=== PATIENT | male | born 1960 | race Caucasian/White ===

== ENCOUNTER 2019-11-27 12:07 | Emergency (ER) | payer OTHER ==
[~2019-11-27] VITALS: Ht 175.3 cm; Wt 77.1 kg
[2019-11-28] MEDS ORDERED: APETIGEN-PLUS1 EACH PO (03:38)
== END 2019-11-28 03:50 | disposition home or self-care (01) ==
LOC: ER 12:07
DX: R10.84 Generalized abdominal pain (principal); E86.0 Dehydration

== ENCOUNTER 2020-11-17 14:06 | Inpatient (IN) | payer OTHER ==
[~2020-11-17] VITALS: Ht 175.3 cm; Wt 77.6 kg
[~2020-11-17 14:06] MED LIST: APETIGEN-PLUS1 EACH PO
--- NOTE | 2020-11-17 14:32 | NUR ---
PTE REFIERE LUDIN DOLOR ABDOMINAL Y VOMITOS SE CHENG S/V Y SE UBICA EN AREA DE OBSERVACIOPN
--- NOTE | 2020-11-17 15:41 | NUR ---
SE EDUCA A PTE SOBRE [place] MEDICO JULIUS REFIERE ENTENDER. SE CHENG MUESTRAS DE LABORATORIO UTILIZANDO MEDIDAS ASEPTICAS. SE COLOCA H/L A PTE EL CUAL SE ENCUENTRA PATENTE Y DARBY DE EDEMA. SE ADMINISTRAN MEDICMANEOTS A PTE LOS CUALES TOLERA Y SE NOTIFICA ESTUDIO DE CT IV.
[2020-11-20] MEDS ORDERED: QUETIAPINE FUM100 MG (09:06)
[2020-11-20] MEDS ORDERED: INTESTINEX680 M1 (09:06)
[2020-11-20] MEDS ORDERED: AMLODIPINE BESYL5 MG (09:06)
[2020-12-04] MEDS ORDERED: MAG-AL PLUS SUS30 M1 PO (16:15)
[2020-12-04] MEDS ORDERED: FOLIC ACID0.8 M1 PO (16:15)
[2020-12-04] MEDS ORDERED: INTESTINEX680 M1 PO (16:15)
[2020-12-04] MEDS ORDERED: THIAMINE HCL100 MG PO (16:15)
[2020-12-04] MEDS ORDERED: PRE PROTEIN1 EACH PO (16:15)
[2020-12-04] MEDS ORDERED: MULTIPLE VITAM1 EAC2 PO (16:15)
[2020-12-04] MEDS ORDERED: CALCIUM 500 +1 EACH PO (16:15)
[2020-12-04] MEDS ORDERED: FLAGYL500MG PO (16:15)
== END 2020-12-04 20:10 | DRG 438 ==
LOC: ER 14:06 → ICU-2 23:55 → SURH 12-02 12:06 → MEDJ 12-04 13:38
PROVIDERS: ADMIT Internal Medicine; ATTEND Internal Medicine
PROC: 4A033R1 Measurement of Arterial Saturation, Peripheral, Percutaneous Approach (ICD-10-PCS; principal; 2020-11-17)
PROC: BW21ZZZ Computerized Tomography (CT Scan) of Abdomen and Pelvis (ICD-10-PCS; 2020-11-17)
PROC: 30233N1 Transfusion of Nonautologous Red Blood Cells into Peripheral Vein, Percutaneous Approach (ICD-10-PCS; 2020-11-20)
PROC: 02HV33Z Insertion of Infusion Device into Superior Vena Cava, Percutaneous Approach (ICD-10-PCS; 2020-11-20)
PROC: BW28ZZZ Computerized Tomography (CT Scan) of Head (ICD-10-PCS; 2020-11-24)
DX: K85.20 Alcohol induced acute pancreatitis without necrosis or infection (principal); E11.10 Type 2 diabetes mellitus with ketoacidosis without coma; F10.188 Alcohol abuse with other alcohol-induced disorder; F10.139 Alcohol abuse with withdrawal, unspecified; E86.0 Dehydration; E87.6 Hypokalemia; Z20.822 Contact with and (suspected) exposure to COVID-19; D64.9 Anemia, unspecified

== ENCOUNTER 2021-05-08 07:51 | Outpatient (CLI) | payer OTHER ==
[~2021-05-08 07:51] MED LIST changes: +AMLODIPINE BESYL5 MG; +CALCIUM 500 +1 EACH PO; +FLAGYL500MG PO; +FOLIC ACID0.8 M1 PO; +INTESTINEX680 M1; +INTESTINEX680 M1 PO; +MAG-AL PLUS SUS30 M1 PO; +MULTIPLE VITAM1 EAC2 PO; +PRE PROTEIN1 EACH PO; +QUETIAPINE FUM100 MG; +THIAMINE HCL100 MG PO
== END 2021-05-08 08:03 | disposition home or self-care (01) ==
LOC: LAB 07:51
PROVIDERS: ATTEND Internal Medicine Hematology & Oncology
DX: R97.0 Elevated carcinoembryonic antigen [CEA] (principal); R97.8 Other abnormal tumor markers; D50.8 Other iron deficiency anemias; I10 Essential (primary) hypertension; R74.02 Elevation of levels of lactic acid dehydrogenase [LDH]; K76.89 Other specified diseases of liver; C61 Malignant neoplasm of prostate; E08.65 Diabetes mellitus due to underlying condition with hyperglycemia; Z86.010 Personal history of colon polyps; D51.3 Other dietary vitamin B12 deficiency anemia